=== PATIENT | female | born 1945 | race Caucasian/White ===

== ENCOUNTER → 2016-12-05 | Outpatient (CLI) | payer MEDICARE, BC ==
[~2016-12-05] MED LIST: ASPI325T32 PO; ATOR40TA68 PO; BEN25 PO; CLON0.2T5 PO; FLUO20CA38 PO; LETR2.5T PO; MUPI22OI2 TOP
[2016-12-05 14:08] LABS: FLUID GLUCOSE 47 mg/dl
[2016-12-05 14:09] LABS: FLUID TYPE SYNOVIAL FLUID
[2016-12-05 14:26] LABS: SYNOVIAL FLUID TYPE Left Knee; SYNOVIAL FLUID VOLUME 30 mL (0-3.5)
[2016-12-05 14:27] LABS: LYMPHOCYTES,SYNOVIAL FLUID 18; NEUTROPHILS,SYNOVIAL FLUID 70 % (0-25); SYNOVIAL FLUID CLARITY Bloody; SYNOVIAL FLUID COLOR Red; SYNOVIAL FLUID WBC 4316 /cmm (0-150)
== END | disposition home or self-care (01) ==
LOC: LAB 11:38
PROVIDERS: ATTEND Orthopaedic Surgery
DX: M25.569 Pain in unspecified knee (principal); M65.20 Calcific tendinitis, unspecified site
CPT/HCPCS: 82945; 87070; 87102; 87116; 89051